=== PATIENT | male | born 1980 ===

== ENCOUNTER 2017-03-06 22:44 | Emergency (ER) | payer SELFPAY ==
[2017-03-06 22:53] VITALS: BP 126/90
== END 2017-03-07 05:37 | disposition left against medical advice (07) ==
LOC: ED 22:44
DX: Z53.21 Procedure and treatment not carried out due to patient leaving prior to being seen by health care provider (principal)

== ENCOUNTER 2017-08-20 09:41 | Emergency (ER) | payer SELFPAY ==
[2017-08-20 10:22] VITALS: BP 122/84
[2017-08-20] MEDS ORDERED: LIDOCAINE VISCOUS 2% PO ONE (11:32)
[2017-08-20] MEDS ORDERED: MOTRIN PO ONE (11:32)
--- NOTE | 2017-08-20 12:01 | Emergency Department Report ---
ED ENT HPI - General Chief complaint: Sore Throat Stated complaint: SORE THROAT Time Seen by Provider: 08/20/17 11:32 Source: patient Mode of arrival: Ambulatory Limitations: No Limitations - History of Present Illness Initial comments: This is a 37-year-old male nontoxic, well nourished in appearance, no acute signs of distress presents to the ED with c/o of sore throat x4 days. Patient describes sore throat as swallowing razer blades. Patient denies any fever, chills, headache, stiff neck, nausea, vomiting, chest pain, shortness of breath , numbness or tingling. Patient denies any drooling or hoarseness. Patient denies any allergies or significant past medical history. Patient states allergies to PCN. Denies any PMH. MD complaint: sore throat -: days(s) (4) Location: throat Severity: mild Severity scale (0 -10): 8 Consistency: constant Improves with: none Worsens with: swallowing Associated Symptoms: pain with swallowing, sore throat. denies: fever, cough, gum swelling, toothache, tinnitus, hearing loss, discharge from ear, rhinorrhea - Related Data Previous Rx's Medication Instructions Recorded Last Taken Type Clindamycin [Clindamycin CAP] 300 mg PO Q8H 7 Days cap 08/20/17 Unknown Rx Ibuprofen [Motrin] 600 mg PO Q8H PRN #30 tablet 08/20/17 Unknown Rx Nystas/Diphen/Xyl Visc/Mylanta 15 ml MM Q4H PRN 10 Days ml 08/20/17 Unknown Rx [Magic Mouthwash] traMADol [Ultram] 50 mg PO Q6HR PRN #15 tablet 08/20/17 Unknown Rx Allergies Allergy/AdvReac Type Severity Reaction Status Date / Time Penicillins Allergy Rash Verified 08/20/17 10:19 ED Dental HPI - General Chief complaint: Sore Throat Stated complaint: SORE THROAT Time Seen by Provider: 08/20/17 11:32 Source: patient Mode of arrival: Ambulatory Limitations: No Limitations - Related Data Previous Rx's Medication Instructions Recorded Last Taken Type Clindamycin [Clindamycin CAP] 300 mg PO Q8H 7 Days cap 08/20/17 Unknown Rx Ibuprofen [Motrin] 600 mg PO Q8H PRN #30 tablet 08/20/17 Unknown Rx Nystas/Diphen/Xyl Visc/Mylanta 15 ml MM Q4H PRN 10 Days ml 08/20/17 Unknown Rx [Magic Mouthwash] traMADol [Ultram] 50 mg PO Q6HR PRN #15 tablet 08/20/17 Unknown Rx Allergies Allergy/AdvReac Type Severity Reaction Status Date / Time Penicillins Allergy Rash Verified 08/20/17 10:19 ED Review of Systems ROS: Stated complaint: SORE THROAT Other details as noted in HPI Constitutional: denies: chills, fever Eyes: denies: eye pain, eye discharge, vision change ENT: throat pain. denies: ear pain Respiratory: denies: cough, shortness of breath, wheezing Cardiovascular: denies: chest pain, palpitations Endocrine: no symptoms reported Gastrointestinal: denies: abdominal pain, nausea, diarrhea Genitourinary: denies: urgency, dysuria Musculoskeletal: denies: back pain, joint swelling, arthralgia Skin: denies: rash, lesions Neurological: denies: headache, weakness, paresthesias Psychiatric: denies: anxiety, depression Hematological/Lymphatic: denies: easy bleeding, easy bruising ED Past Medical Hx - Past Medical History Previous Medical History?: No - Surgical History Past Surgical History?: No - Social History Smoking Status: Current Every Day Smoker Substance Use Type: Alcohol - Medications Home Medications: Home Medications Medication Instructions Recorded Confirmed Last Taken Type Clindamycin [Clindamycin CAP] 300 mg PO Q8H 7 Days cap 08/20/17 Unknown Rx Ibuprofen [Motrin] 600 mg PO Q8H PRN #30 tablet 08/20/17 Unknown Rx Nystas/Diphen/Xyl Visc/Mylanta 15 ml MM Q4H PRN 10 Days ml 08/20/17 Unknown Rx [Magic Mouthwash] traMADol [Ultram] 50 mg PO Q6HR PRN #15 tablet 08/20/17 Unknown Rx ED Physical Exam - General Limitations: No Limitations General appearance: alert, in no apparent distress - Head Head exam: Present: atraumatic, normocephalic - Eye Eye exam: Present: normal appearance Pupils: Present: normal accommodation - ENT ENT exam: Present: mucous membranes moist, TM's normal bilaterally, normal external ear exam - Expanded ENT Exam Expanded Ear exam: Present: normal external inspection Mouth exam: Present: normal external inspection, tongue normal. Absent: drooling, trismus, muffled voice, tongue elevation, laceration Teeth exam: Present: normal inspection Throat exam: Positive: tonsillar erythema, tonsillomegaly (2+), tonsillar exudate, other (Uvula midline. No abscess or swelling noted. ). Negative: R peritonsillar mass, L peritonsillar mass - Neck Neck exam: Present: normal inspection, full ROM, lymphadenopathy (bilateral tonsillar). Absent: tenderness, meningismus - Respiratory Respiratory exam: Present: normal lung sounds bilaterally. Absent: respiratory distress, wheezes, rales, rhonchi, stridor, chest wall tenderness, accessory muscle use, decreased breath sounds, prolonged expiratory - Cardiovascular Cardiovascular Exam: Present: regular rate, normal rhythm, normal heart sounds. Absent: bradycardia, tachycardia, irregular rhythm, systolic murmur, diastolic murmur, rubs, gallop - GI/Abdominal GI/Abdominal exam: Present: soft, normal bowel sounds - Rectal Rectal exam: Present: deferred - Extremities Exam Extremities exam: Present: normal inspection, full ROM, normal capillary refill - Back Exam Back exam: Present: normal inspection, full ROM - Neurological Exam Neurological exam: Present: alert, oriented X3, normal gait - Psychiatric Psychiatric exam: Present: normal affect, normal mood - Skin Skin exam: Present: warm, dry, intact, normal color. Absent: rash ED Course Vital Signs 08/20/17 10:19 Temperature 99 F Pulse Rate 90 Respiratory 20 Rate Blood Pressure 122/84 O2 Sat by Pulse 98 Oximetry - Reevaluation(s) Reevaluation #1: 08/20/17 12:03 Patient is speaking in full sentences with no signs of distress noted. Critical care attestation.: If time is entered above; I have spent that time in minutes in the direct care of this critically ill patient, excluding procedure time. ED Disposition Clinical Impression: Tonsillitis with exudate Disposition: DC-01 TO HOME OR SELFCARE Is pt being admited?: No Does the pt Need Aspirin: No Condition: Stable Instructions: Tonsillitis (ED), Clindamycin (By mouth), Tramadol (By mouth) Additional Instructions: Follow-up with a primary care doctor in 3-5 days or if symptoms worsen and continue return to emergency room as soon as possible. Prescriptions: Clindamycin [Clindamycin CAP] 300 mg PO Q8H 7 Days cap Ibuprofen [Motrin] 600 mg PO Q8H PRN #30 tablet PRN Reason: Pain Nystas/Diphen/Xyl Visc/Mylanta [Magic Mouthwash] 15 ml MM Q4H PRN 10 Days ml PRN Reason: Sore Throat traMADol [Ultram] 50 mg PO Q6HR PRN #15 tablet PRN Reason: Pain Referrals: PRIMARY CARE, [Primary Care Provider] - 3-5 Days KRISTEL ZHU MD [Staff Physician] - 3-5 Days IJEOMA SOUZA MD [Staff Physician] - 3-5 Days [facility] [Outside] - 3-5 Days [facility] [Outside] - 3-5 Days Forms: Work/School Release Form(ED)
== END 2017-08-20 12:16 | disposition home or self-care (01) ==
LOC: ED 09:41
DX: J03.90 Acute tonsillitis, unspecified (principal); F17.200 Nicotine dependence, unspecified, uncomplicated; Z88.0 Allergy status to penicillin
CPT/HCPCS: 99282

== ENCOUNTER 2018-10-10 13:00 | Emergency (ER) | payer SELFPAY ==
--- NOTE | 2018-10-10 13:46 | Emergency Department Report ---
Blank Doc - Documentation Documentation: This is a 38-year-old male that presents with hematuria and urinary frequency. This initial assessment/diagnostic orders/clinical plan/treatment(s) is/are subject to change based on patient's health status, clinical progression and re- assessment by fellow clinical providers in the ED. Further treatment and workup at subsequent clinical providers discretion. Patient/guardians urged not to elope from the ED as their condition may be serious if not clinically assessed and managed. Initial orders include: 1- Patient sent to [facility] for further evaluation and treatment 2- UA
[2018-10-10] MEDS ORDERED: NACL 0.9% 1000 ML 1,000 ML IV ONE ×2 (14:01→16:13)
[2018-10-10] MEDS ORDERED: TORADOL IV ONE (14:03)
--- NOTE | 2018-10-10 14:04 | Emergency Department Report ---
HPI - General Chief Complaint: Urogenital-Male Time Seen by Provider: 10/10/18 13:45 - HPI HPI: PT IS 38 YO WHO COMES TO ER WITH R FLANK PAIN FOR 3 DAYS. NO N/V/D. NO DYSURIA. NO FEVER. NO PENILE DC. STATES HE HAS HAD UTI IN THE PAST. NO HX KIDNEY STONES. HE IS NOT CONCERNED FOR STI. PMH HTN NOT ON MEDS, STATES HE WAS NEVER TOLD TO TAKE MEDS VSS NO FEVER ED Past Medical Hx - Past Medical History Previous Medical History?: Yes Hx Hypertension: Yes - Surgical History Past Surgical History?: No - Family History Family history: no significant - Social History Smoking Status: Current Every Day Smoker Substance Use Type: Alcohol - Medications Home Medications: Home Medications Medication Instructions Recorded Confirmed Last Taken Type DOXYCYCLINE Hyclate [Vibramycin 100 mg PO Q12HR #20 capsule 10/10/18 Unknown Rx CAP] Naproxen [Naprosyn] 500 mg PO BID PRN #20 tablet 10/10/18 Unknown Rx ED Review of Systems ROS: Stated complaint: UTI Other details as noted in HPI Comment: All other systems reviewed and negative Physical Exam - Physical Exam Vital Signs: Vital Signs 10/10/18 13:46 Temperature 98.3 F Pulse Rate 77 Respiratory 16 Rate Blood Pressure 146/88 O2 Sat by Pulse 99 Oximetry General: - Head Head exam: Present: atraumatic, normocephalic - Eye Eye exam: Present: normal appearance, EOMI. Absent: nystagmus - ENT ENT exam: Present: normal exam, normal orophraynx, mucous membranes moist, normal external ear exam, no lymphadenopathy - Neck Neck exam: Present: normal inspection, full ROM. Absent: tenderness, meningismus - Respiratory Respiratory exam: Present: normal lung sounds bilaterally. Absent: respiratory distress, wheezes, rales, rhonchi, stridor, chest wall tenderness, accessory muscle use, decreased breath sounds, prolonged expiratory - Cardiovascular Cardiovascular Exam: Present: regular rate, normal rhythm, normal heart sounds. Absent: bradycardia, tachycardia, irregular rhythm, systolic murmur, diastolic murmur, rubs, gallop, JVD, edema - GI/Abdominal GI/Abdominal exam: Present: soft, non tender on light and deep palpation. Absent: distended, tenderness, guarding, rebound, rigid, pulsatile mass - Rectal Rectal exam: Present: deferred - Extremities Exam Extremities exam: Present: normal inspection, full ROM, other (2+ pulses noted in the bilateral upper extremities. Bilateral lower extremities with 2+ DP bilateral. Full ROM. Absent: calf tenderness - Back Exam Back exam: Present: normal inspection, full ROM. Absent: tenderness, CVA tenderness (R), CVA tenderness (L), paraspinal tenderness, vertebral tenderness - Neurological Exam Neurological exam: Present: alert, oriented X3, normal gait, other (Extraocular movements intact. Tongue midline. No facial droop. Facial sensation intact to light touch in the V1, V2, V3 distribution bilaterally. 5 and 5 strength in 4 extremities.. Sensation is intact to light touch in 4 extremities.). Absent: motor sensory deficit - Psychiatric Psychiatric exam: normal affect and mood - Skin Skin exam: Present: warm, dry, intact, normal color. Absent: rash ED Course Vital Signs 10/10/18 13:46 Temperature 98.3 F Pulse Rate 77 Respiratory 16 Rate Blood Pressure 146/88 O2 Sat by Pulse 99 Oximetry ED Medical Decision Making - Lab Data Result diagrams: 10/10/18 14:33 10/10/18 14:33 - Radiology Data Radiology results: report reviewed, image reviewed NO STONES - Medical Decision Making Labs 10/10/18 10/10/18 10/10/18 14:33 14:33 15:12 WBC 6.3 RBC 4.87 Hgb 14.9 Hct 44.0 MCV 90 MCH 31 MCHC 34 RDW 14.2 Plt Count 176 Sodium 137 Potassium 4.1 Chloride 105.0 Carbon Dioxide 23 Anion Gap 13 BUN 9 Creatinine 0.8 Estimated GFR > 60 BUN/Creatinine Ratio 11 Glucose 118 H Calcium 8.3 L Urine Color Rhonda Urine Turbidity Cloudy Urine pH 6.0 Ur Specific [place] 1.021 Urine Protein 100 mg/dl Urine Glucose (UA) Neg Urine Ketones Neg Urine Blood Lg Urine Nitrite Neg Urine Bilirubin Neg Urine Urobilinogen < 2.0 Ur Leukocyte Esterase Mod Urine WBC (Auto) > 182.0 H Urine RBC (Auto) > 182.0 Ur Transition Epith Cell 1 Urine Mucus 1+ Vital Signs 10/10/18 13:46 Temperature 98.3 F Pulse Rate 77 Respiratory 16 Rate Blood Pressure 146/88 O2 Sat by Pulse 99 Oximetry URINE NOTED LABS NOTED GC PENDING TREATED WITH ROCEPHIN AND AZITHROMYCIN. MEDICATED WITH NS/PAIN AND NAUSEAMEDS GIVEN BLOOD - CT ORDERED VSS AFEBRILE NO CVA TENDERNESS NO PENILE DC ABD SOFT NON TENDER ON EXAM TAKING PO AMBULATORY NO STONES ON CT DC HOME WITH URO FOLLOW UP. - Differential Diagnosis UTI/STD/KIDNEY STONE Critical care attestation.: If time is entered above; I have spent that time in minutes in the direct care of this critically ill patient, excluding procedure time. ED Disposition Clinical Impression: Dysuria, Hematuria Disposition: DC-01 TO HOME OR SELFCARE Is pt being admited?: No Does the pt Need Aspirin: No Condition: Stable Instructions: Safe Sex (ED), Urinary Tract Infection in Men (ED) Additional Instructions: DIET TOLERATED ACTIVITY TOLERATED FOLLOW UP WITH UROLOGY REFERRAL BELOW MEDS ORDERED HYDRATE WELL WITH WATER Prescriptions: Naproxen [Naprosyn] 500 mg PO BID PRN #20 tablet PRN Reason: Pain DOXYCYCLINE Hyclate [Vibramycin CAP] 100 mg PO Q12HR #20 capsule Referrals: STEFFEN CHANG MD [Staff Physician] - 3-5 Days Time of Disposition: 18:01
[2018-10-10 14:51] LABS: Hemoglobin 14.9 gm/dl (11.8-15.2); Mean Corpuscular HGB Conc 34 % (32-34); Mean Corpuscular Volume 90 fl (84-94); Platelet Count 176 K/mm3 (140-440); Red Blood Count 4.87 M/mm3 (3.65-5.03); Red Cell Distribution Width 14.2 % (13.2-15.2)
[2018-10-10 15:12] LABS: BUN/Creatinine Ratio 11; Blood Urea Nitrogen 9 mg/dL (9-20); Calcium 8.3 mg/dL (8.4-10.2); Hemolysis Index 3
[2018-10-10 15:54] LABS: Bilirubin,Urine NEG (Negative); Blood,Urine LG (Negative); Color,Urine Amber (Yellow); Mucus,Urine 1+ /HPF; Urobilinogen,Urine < 2.0 mg/dL (<2.0)
[2018-10-10 15:57] LABS: RBC,Urine > 182.0 /HPF (0.0-6.0); WBC,Urine > 182.0 /HPF (0.0-6.0)
[2018-10-10] MEDS ORDERED: AZACTAM/NS 1 GM/50 ML 1 GM/50 ML VIAL IV ONE ×2 (17:12)
[2018-10-10] MEDS ORDERED: ZITHROMAX PO ONE (17:59)
[2018-10-10] MEDS ORDERED: NORCO 5/325 PO ONE (17:59)
[2018-10-10 19:07] VITALS: BP 148/84
--- NOTE | 2018-10-10 20:53 | Cat Scan Report ---
PROCEDURE: CT ABDOMEN PELVIS WO CON TECHNIQUE: Computerized axial tomography of the abdomen and pelvis was performed without intravenous contrast. This study is performed without intravascular contrast material and its sensitivity for ab dominal and pelvic pathology, including neoplasms, inflammation, abscess, free fluid, thrombosis, art erial dissection and infarction, is reduced compared with a contrast enhanced study. CT DOSE LENGTH PRODUCT: 452.5 mGycm HISTORY: Right flank pain COMPARISONS: None . FINDINGS: Lower Lung [place]: No focal abnormalities seen. Upper Abdomen: The gallbladder is contracted and difficult to evaluate. No gross abnormalities seen. The unenhanced images of the liver are unremarkable. The adrenal glands, pancreas and spleen are unr emarkable. Kidneys, Ureters and Urinary bladder: No renal or ureteral calculi are seen. Calcifications seen in the lower pelvis which appear to represent phleboliths. No renal masses are identified. There is no h ydronephrosis. Retroperitoneum: Atherosclerotic changes are seen in the abdominal aorta. No aneurysm is visualized. Nonspecific subcentimeter lymph nodes are seen in the retroperitoneum. No pathologically enlarged ly mph nodes are identified. Bowel: No focal bowel abnormalities are identified. No evidence of bowel obstruction. There is no as cites or free intraperitoneal gas. The appendix is suboptimally visualized though appears to be locat ed in the right lower quadrant on the coronal images. No gross adenopathy is seen. Reproductive organs: There is nonspecific diffuse prostate enlargement. Other: No acute bone abnormalities are seen. IMPRESSION: No acute abnormalities are identified. No evidence of renal or ureteral calculi. No hydronephrosis vi sualized. This document is electronically signed by Armani Wallace MD., Oct 10 2018 08:51:32 PM ET
== END 2018-10-10 19:06 | disposition home or self-care (01) ==
LOC: ED 13:00
DX: R30.0 Dysuria (principal); R31.9 Hematuria, unspecified; I10 Essential (primary) hypertension; F17.200 Nicotine dependence, unspecified, uncomplicated; Z88.0 Allergy status to penicillin
CPT/HCPCS: 36415; 74176; 80048; 81001; 85027; 87591; 96365; 96375; 99284; J1885; J7030

== ENCOUNTER 2020-03-26 00:03 | Emergency (ER) | payer SELFPAY ==
[2020-03-26 01:45] VITALS: BP 130/96
== END 2020-03-26 02:50 | disposition left against medical advice (07) ==
LOC: ED 00:03
DX: S61.452A Open bite of left hand, initial encounter (principal); Z53.21 Procedure and treatment not carried out due to patient leaving prior to being seen by health care provider